=== PATIENT | male | born 1950 | race Caucasian/White ===

== ENCOUNTER → 2018-03-24 09:57 | Outpatient (CLI) | payer MEDICARE, OTHER, SELFPAY ==
[2018-03-24 10:38] LABS: Therapeutic Phleb Comment HCT AT TARGET
[2018-03-24 10:39] LABS: Add Manual Diff / Slide Review NO; Basophils Percent Auto 0.4 % (0-2); Eosinophils Percent Auto 3.1 % (2-4); Lymphocytes Percent Auto 25.3 % (25-40); Mean Corpuscular HGB Conc 32.1 % (30-36); Mean Corpuscular Hemoglobin 25.6 PG (26-34); Mean Corpuscular Volume 79.5 fL (80-100); Monocytes Percent Auto 12.4 % (3-14); Neutrophils Absolute Auto 3400 /uL (3000-5900); Neutrophils Percent Auto 58.8 % (50-75); Platelet Count 111 X10^3/uL (150-400); Red Blood Cell Count 5.65 X10^6/uL (4.5-5.9); Red Cell Distribution Width 16.4 % (11.6-14.8); White Blood Cell Count 5.7 X10^3/uL (4.5-11.0)
[2018-03-24 10:40] LABS: Hematocrit 45.1 % (41-53); Hemoglobin 14.6 g/dL (13.5-17.5)
[2018-03-24 11:20] LABS: HEMOLYSIS < 15 (0-50); Iron 60 ug/dL (49-181)
[2018-03-24 11:21] LABS: Alanine Aminotransferase 52 IU/L (21-72); Albumin 4.1 g/dL (3.5-5.0); Albumin Globulin Ratio 1.5 (1.0-2.8); Alkaline Phosphatase 65 U/L (38-126); Aspartate Aminotransferase 46 IU/L (17-59); BUN Creatinine Ratio 18.9 (6-22); Bilirubin Total 0.6 mg/dL (0.2-1.3); Blood Urea Nitrogen 17 mg/dL (9-20); Calcium 9.1 mg/dL (8.4-10.2); Carbon Dioxide 32 mmol/L (22-32); Chloride 99 mmol/L (98-107); Estimated Glomerular Filt Rate > 60.0 mL/min (>60); Globulin 2.7 g/dL (1.7-4.1); Glucose 94 mg/dL (80-110); HEMOLYSIS < 15 (0-50); Potassium 5.2 mmol/L (3.4-5.1); Sodium 141 mmol/L (137-145); Total Protein 6.8 g/dL (6.3-8.2)
[2018-03-24 11:31] LABS: Percent Iron Saturation 14 % (20-50); Total Iron Binding Capacity 440 ug/mL (261-462); Transferrin 350 mg/dL (206-381)
== END ==
PROVIDERS: PCP Family Medicine; Visit Provider Internal Medicine Hematology & Oncology
DX: D75.1 Secondary polycythemia (principal); R53.83 Other fatigue; R79.89 Other specified abnormal findings of blood chemistry
CPT/HCPCS: 36415; 80053; 82728; 83540; 83550; 85025; 99195

== ENCOUNTER → 2018-04-28 09:54 | Outpatient (CLI) | payer MEDICARE, OTHER, SELFPAY ==
[2018-04-28 10:21] LABS: Add Manual Diff / Slide Review NO; Basophils Percent Auto 0.6 % (0-2); Eosinophils Percent Auto 2.9 % (2-4); Hemoglobin 14.1 g/dL (13.5-17.5); Lymphocytes Percent Auto 25.1 % (25-40); Mean Corpuscular HGB Conc 32.1 % (30-36); Mean Corpuscular Hemoglobin 25.6 PG (26-34); Mean Corpuscular Volume 79.9 fL (80-100); Monocytes Percent Auto 12.2 % (3-14); Neutrophils Absolute Auto 3700 /uL (3000-5900); Neutrophils Percent Auto 59.2 % (50-75); Platelet Count 108 X10^3/uL (150-400); Red Blood Cell Count 5.51 X10^6/uL (4.5-5.9); Red Cell Distribution Width 17.7 % (11.6-14.8); White Blood Cell Count 6.2 X10^3/uL (4.5-11.0)
== END ==
PROVIDERS: PCP Family Medicine; Visit Provider Nurse Practitioner Gerontology
DX: D75.1 Secondary polycythemia (principal)
CPT/HCPCS: 36415; 85025

== ENCOUNTER → 2018-05-26 09:57 | Outpatient (CLI) | payer MEDICARE, OTHER, SELFPAY ==
[2018-05-26 10:16] LABS: Add Manual Diff / Slide Review NO; Basophils Percent Auto 1.1 % (0-2); Eosinophils Percent Auto 3.8 % (2-4); Hemoglobin 14.8 g/dL (13.5-17.5); Lymphocytes Percent Auto 22.8 % (25-40); Mean Corpuscular HGB Conc 32.3 % (30-36); Mean Corpuscular Hemoglobin 25.8 PG (26-34); Monocytes Percent Auto 13.1 % (3-14); Neutrophils Absolute Auto 3900 /uL (3000-5900); Neutrophils Percent Auto 59.2 % (50-75); Platelet Count 110 X10^3/uL (150-400); Red Blood Cell Count 5.75 X10^6/uL (4.5-5.9); Red Cell Distribution Width 17.8 % (11.6-14.8); White Blood Cell Count 6.6 X10^3/uL (4.5-11.0)
[2018-05-26 10:20] LABS: 585 Gram Check PASS; Zero Check Sebra Scale PASS
[2018-05-26 10:21] LABS: Amount Collected in g 585; Prediastolic 72; Presystolic 130; Pulse 52; Site of phlebotomy RIGHT AC
[2018-05-26 10:36] LABS: Dizziness no; Postdiastolic BP 66; Postsystolic BP 121; Swelling no
== END ==
PROVIDERS: PCP Family Medicine; Visit Provider Nurse Practitioner Gerontology
DX: D75.1 Secondary polycythemia (principal)
CPT/HCPCS: 36415; 85025; 99195

== ENCOUNTER → 2018-06-16 09:32 | Outpatient (CLI) | payer MEDICARE, OTHER, SELFPAY ==
[2018-06-16 10:05] LABS: Hematocrit 44.5 % (41-53); Hemoglobin 14.5 g/dL (13.5-17.5)
[2018-06-16 11:14] LABS: Alanine Aminotransferase 46 IU/L (21-72); Albumin 4.1 g/dL (3.5-5.0); Albumin Globulin Ratio 1.6 (1.0-2.8); Alkaline Phosphatase 75 U/L (38-126); Aspartate Aminotransferase 49 IU/L (17-59); Bilirubin Total 0.7 mg/dL (0.2-1.3); Bilirubin Unconjugated 0.4 mg/dL (0.0-1.1); Globulin 2.6 g/dL (1.7-4.1); HEMOLYSIS < 15 (0-50); Total Protein 6.7 g/dL (6.3-8.2)
[2018-06-16 11:45] LABS: Prostate Specific Antigen 0.471 ng/mL (0.10-4.00)
== END ==
PROVIDERS: PCP Family Medicine; Visit Provider Urology
DX: E29.1 Testicular hypofunction (principal); Z12.5 Encounter for screening for malignant neoplasm of prostate
CPT/HCPCS: 36415; 80076; 84153; 85014; 85018

== ENCOUNTER → 2018-06-30 09:59 | Outpatient (CLI) | payer MEDICARE, OTHER, SELFPAY ==
[2018-06-30 10:24] LABS: Add Manual Diff / Slide Review NO; Basophils Percent Auto 0.7 % (0-2); Eosinophils Percent Auto 3.2 % (2-4); Hematocrit 44.5 % (41-53); Hemoglobin 14.4 g/dL (13.5-17.5); Lymphocytes Percent Auto 23.2 % (25-40); Mean Corpuscular HGB Conc 32.4 % (30-36); Mean Corpuscular Hemoglobin 25.9 PG (26-34); Mean Corpuscular Volume 79.9 fL (80-100); Monocytes Percent Auto 13.1 % (3-14); Neutrophils Absolute Auto 3900 /uL (3000-5900); Neutrophils Percent Auto 59.8 % (50-75); Platelet Count 106 X10^3/uL (150-400); Red Blood Cell Count 5.57 X10^6/uL (4.5-5.9); Red Cell Distribution Width 16.9 % (11.6-14.8); White Blood Cell Count 6.5 X10^3/uL (4.5-11.0)
[2018-06-30 11:15] LABS: Alanine Aminotransferase 57 IU/L (21-72); Albumin 4.1 g/dL (3.5-5.0); Albumin Globulin Ratio 1.4 (1.0-2.8); Alkaline Phosphatase 65 U/L (38-126); Aspartate Aminotransferase 53 IU/L (17-59); Bilirubin Total 0.7 mg/dL (0.2-1.3); Blood Urea Nitrogen 19 mg/dL (9-20); Calcium 9.1 mg/dL (8.4-10.2); Carbon Dioxide 34 mmol/L (22-32); Chloride 102 mmol/L (98-107); Estimated Glomerular Filt Rate > 60.0 mL/min (>60); Globulin 2.9 g/dL (1.7-4.1); Glucose 89 mg/dL (80-110); HEMOLYSIS < 15 (0-50); Potassium 4.6 mmol/L (3.4-5.1); Sodium 141 mmol/L (137-145)
== END ==
PROVIDERS: PCP Family Medicine; Visit Provider Nurse Practitioner Gerontology
DX: D75.1 Secondary polycythemia (principal)
CPT/HCPCS: 36415; 80053; 85025

== ENCOUNTER 2018-07-05 14:30 | Oncology outpatient (ONC) | payer MEDICARE, OTHER, SELFPAY ==
[2018-04-08 15:08] VITALS: BP 129/72; PULSE 67; RESP 18; TEMP 36.5
--- NOTE | 2018-04-08 15:36 | P.PNONC_ITS ---
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 Patient currently receiving 0.75cc (unsure of dose) every 2 weeks. Patient is currently on nonstandard care with therapeutic phlebotomy for hematocrit of 45 or above initially started in 2005 which he continues on at this time. It has been recommended in the past by multiple providers that he decrease his testosterone dose. PSA was checked by Dr. Can in December of 2017. It was within normal limits at 2.7. Recommend that he and his primary care provider continue monitoring at least every 6 months or so while on testosterone replacement. Continue with every 2 month CBC. Discontinue every month iron profile as insurance has not been covering it. Counts have been fairly stable. We will check every 6 months or sooner if clinically indicated. Continue therapeutic phlebotomy as needed. Return to clinic in 3 months for provider visit CBC, CMP. Patient agrees with the above plan of care. - Time Spent with Patient 35 mins PN -Subjective Interval history: The patient is a 67 year old Male who is being seen in the clinic 04/08/2018 for secondary polycythemia related to a history of longstanding injectable testosterone replacement therapy. Initially he was requiring therapeutic phlebotomy almost every 2 weeks. This was strongly discouraged, additionally, he was encouraged to decrease his testosterone replacement dose. Currently he is receiving 0.75cc testosterone Q2 weeks. He has required only 2 therapeutic phlebotomies since September of 2017. On exam today he has no new complaints whatsoever. Overall is feeling well. No chest pain, shortness of breath. Activity tolerance is unchanged. Appetite is unchanged. Bladder and bowel habits unchanged. No new pain, no new lower extremity edema. INTERIM HISTORY the most recent testosterone level was over 1300 on Nov 12. He had done a dose reduction for 6 months; Dose: 0.75 mg every two weeks in muscle. Last phlebotomy was Oct 09. Next time will be Nov 02. He undergoes phlebotomyfor symptomatic relief. I have advised him that although phlebotomy is not dangerous, the correct solution to the problem is to reduce or eliminate testosterone injections. HISTORY He developed fatigue and thus began treatment with testosterone, currently on a dose of 1cc IM every 2 weeks, he noted improvement in both energy and libido. Apprxoimately 7 years ago it is noted he developed predictable polycythemia, was started on routine phlebotomies, initailly every [address] Brooks recommended 50% dose reduction in testosterone dose, with recheck and assessment as to whether phlebotomy is still needed. He saw me on March 02, 2017 ; I encouraged further reduction in testosterone dose, phelbotomy to get HCT under 50%, CBC, CMP, FE, TIBC, and Ferritin He reports that he is back on his full dose of testosterone because he waas feeling drug down with the reduced dose and it didn't seem to be making much difference in my blood so he returned to the full dose. He has been receiving phlebotomies as often as every 2 weeks, his most recent hct was at 50.4% on 04/03/17. Past Medical History Diagnosed with primary anal cancer 10-plus years ago. Treated with combination chemotherapy/radiation therapy. His last colonoscopy was 10-plus years ago. Hypertension, under treatment. secondary polycythemia. Venous insufficiency, primarily in the left lower extremity. Past Surgical History Per [facility] Last colonoscopy 10+ years ago Home Medications and Allergies Home Medications Medication Instructions Recorded Confirmed Type VITAMIN D (Vitamin D3) 1,000 iu PO QDAY #0 01/30/17 History [MILK THISTLE] 500 mg PO QDAY #0 01/30/17 History ascorbic acid (vitamin C) 500 mg PO QDAY #0 01/30/17 History cephalexin [Keflex] 250 mg BID #0 01/30/17 History glucosamine sulfate [Synovacin] 500 mg PO QDAY #0 01/30/17 History hydrochlorothiazide 25 mg PO QDAY #0 01/30/17 History loratadine [Claritin Liqui-Gel] 10 mg PO QDAYP PRN #0 01/30/17 History lovastatin 20 mg PO HS #0 01/30/17 History omega 0-ugr-hdv-fish oil [Fish Oil] 1,000 mg PO QDAY #0 01/30/17 History sulfamethoxazole-trimethoprim 1 tab PO BID #0 01/30/17 History trazodone 50 mg PO HS #0 01/30/17 History zinc gluconate 100 mg PO QDAY #0 01/30/17 History aspirin 81 mg PO BID #0 01/11/18 History ginkgo biloba leaf extract 60 mg PO Q DAY #0 01/11/18 History metoprolol tartrate 50 mg PO BID 04/08/18 04/08/18 History Allergies Allergy/AdvReac Type Severity Reaction Status Date / Time morphine [MORPHINE] AdvReac Severe ITCH Unverified 01/27/18 12:01 INGREDIENT: NKDA - NO KNOWN Allergy Unknown Uncoded 01/27/18 12:01 DRUG ALLERGIES Exam Vital signs: Last Vital Signs Temp 97.7 F 04/08/18 15:08 Pulse 67 04/08/18 15:08 Resp 18 04/08/18 15:08 BP 129/72 H 04/08/18 15:08 Narrative: non toxic appearing - Constitutional positive no acute distress, positive obese - Routine HEENT Exam Eye: Present: conjunctivae pink. Absent: conjunctival icterus, scleral injection ENT: Present: mucous membranes moist - Routine Neck Exam Present: supple. Absent: JVD, lymphadenopathy - Routine Respiratory Exam Present: Clear to auscultation bilaterally - Routine Cardiovascular Exam Present: RRR, S1, S2. Absent: murmur, gallop, rubs - Routine Abdominal Exam Present: soft, normoactive bowel sounds. Absent: tenderness, distended, organomegaly - Routine Extremities Exam Absent: edema, calf tenderness - Routine Skin Exam Present: intact, normal turgor. Absent: petechiae, rash - Routine Neurological Exam Present: alert, oriented X3, vision grossly intact, hearing grossly intact - Routine Psychiatric Exam Present: normal affect, normal thought process, good insight, good judgment
--- NOTE | 2018-07-05 14:05 | P.PNONC_ITS ---
PN -Subjective Interval history: CHIEF COMPLAINTS Secondary polycythemia here for scheduled follow-up visit HISTORY OF PRESENT ILLNESS The patient was previously followed by Dr. Bob. And this is my first encounter with him. I took time and reviewed all the medical records in the computer and also took a detailed medical history from the patient. Per patient' s recall, he was diagnosed with anal squamous cell carcinoma back in 2005. Patient underwent curative concurrent chemoradiotherapy. Thereafter as far as squamous cell carcinoma is concerned, there has been no evidence of disease recurrence or metastasis. However due to the concurrent radiation treatment, patient developed abnormal bowel movement issues. Patient now is having multiple frequent bowel movement, about 5-6 times per day. He said that it is rough towards the end of the day after frequent stools, and sometimes he saw blood on the surface of the stool. Patient said that he is aware that he is due for colonoscopy and he himself will try to touch base with his primary care provider and proceed. In addition, due to the radiation treatment, patient developed primary testicular failure. After chemoradiotherapy, patient was started on testosterone replacement therapy with Depo testosterone cypionate. About 6 months into the use of testosterone, he was found to have an elevated hemoglobin and hematocrit level. Patient at that time was followed by Dr. Camacho and patient was initiated on the treatment with phlebotomies. Per patient's own word, when the hematocrit level is above 45%, patient feels discomfort; and feels better after the phlebotomy. Patient currently is being followed by Dr. Carlton for testosterone replacement therapy. At one time, patient stopped phlebotomy after seeing Dr. Dugan, a medical oncologist. However patient noticed that without phlebotomy, patient developed symptoms of fatigue and flush. Therefore phlebotomy was resumed after patient was evaluated evaluated by Dr. Bob. The goal of the phlebotomy is set to keep the hematocrit level around 45%. Today, he presents for scheduled follow up visit. Clinically patient reported good energy after the injection of the testosterone. But at the end of the 2 weeks interval, his energy level usually declines to some extent. Patient reports good appetite and his weight has been stable. He denies any headache, double vision or blurred vision. He denies chest pain or shortness of breath. He denies any abdominal pain. He denies constipation. Patient recently developed right neck pain. It has been present for about a couple of months. Patient has been evaluated by a chiropractor and was recommended for physical therapy which he is yet to see his primary care doctor to get the referral. - Additional ROS All systems PM: reviewed and no additional remarkable complaints except as stated Home Medications and Allergies Home Medications Medication Instructions Recorded Confirmed Type VITAMIN D (Vitamin D3) 1,000 iu PO QDAY #0 01/30/17 07/05/18 History [MILK THISTLE] 500 mg PO QDAY #0 01/30/17 07/05/18 History ascorbic acid (vitamin C) 500 mg PO QDAY #0 01/30/17 07/05/18 History cephalexin [Keflex] 250 mg BID #0 01/30/17 History glucosamine sulfate [Synovacin] 500 mg PO QDAY #0 01/30/17 07/05/18 History hydrochlorothiazide 25 mg PO QDAY #0 01/30/17 07/05/18 History loratadine [Claritin Liqui-Gel] 10 mg PO QDAYP PRN #0 01/30/17 07/05/18 History lovastatin 20 mg PO HS #0 01/30/17 07/05/18 History omega 2-igo-rmx-fish oil [Fish Oil] 1,000 mg PO QDAY #0 01/30/17 07/05/18 History trazodone 50 mg PO HS #0 01/30/17 07/05/18 History zinc gluconate 100 mg PO QDAY #0 01/30/17 07/05/18 History aspirin 81 mg PO BID #0 01/11/18 07/05/18 History ginkgo biloba leaf extract 60 mg PO Q DAY #0 01/11/18 07/05/18 History metoprolol tartrate 50 mg PO BID 04/08/18 07/05/18 History Allergies Allergy/AdvReac Type Severity Reaction Status Date / Time morphine [MORPHINE] AdvReac Severe ITCH Verified 07/05/18 14:58 Exam Vital signs: Temperature 98.5, heart rate 76, respiratory rate 17, pulse ox 96% on room air, weight 98.5 kilos, blood pressure 134/59, ECOG 1 Narrative: General: well developed, well nourished, not in any acute respiratory distress , came in by himself. Patient does have a rubra facial complexion. HEENT: Normocephalic, atraumatic, extraocular muscle movement intact, pupils are round equal and reactive to light and accommodations, anicteric sclera, no conjunctiva injection, oral mucosa membranes moist, no oral mucosal ulcers. Neck: Supple, no palpable thyromegaly, no palpable enlarged lymph nodes, no JVD. Respiratory: Clear to auscultation, no wheezes, no use of accessory respiratory muscles. Cardiovascular: Regular rate and rhythm, S1 and S2 normal, no murmurs gallops or rubs. Abdomen: Soft, nontender, nondistended, no palpable hepatomegaly, no palpable splenomegaly. Lower extremities: No pitting edema noted on my physical examination Neurological: Patient is awake and alert and oriented x3, nonfocal on my examination. Psychiatric: Patient has normal mood, normal affect, cooperative, normal thought process and good judgment. Lymphatic: No palpable lymph nodes in the neck or the axilla. Results - Labs The lab result from June the 2017 was reviewed by me today. Patient's white blood cell count was 6.5, hemoglobin level 14.4, hematocrit 44.5%, and platelets 106, sodium 141, potassium 4.6, chloride 102, carbon dioxide 34, BUN 19, creatinine 1.0, glucose level 89, calcium 9.1, total bilirubin 0.7, AST 53, ALT 57, alk phos 65, total protein 7.0, albumin 4.1, globulin 2.9, Assessment and Plan (1) Secondary polycythemia Current visit: Yes Status: Chronic Patient's polycythemia is most likely due to the prolonged use of testosterone. I discussed in detail with the patient about the goal of the phlebotomies. Clinically patient clearly benefits from phlebotomy as far as symptoms are concerned. Patient said that after the phlebotomy, he feels a lot better. If HCT level rises above 45%, patient actually can feel the difference. From symptom management point of view, I will continue current active monitoring with phlebotomy on an as-needed basis. I told the patient that my goal is to keep the hematocrit level around 45%. I will see him in 2 months and I will repeat the CBC and CMP, and possibly phlebotomy. 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 Patient has been on replacement testosterone with good therapeutic effect as far as overall sense of health and energy level is concerned. I believe that pharmacological replacement with testosterone can never mimick what nature can do. That is why we see some untoward side-effects including the above-mentioned polycythemia. Patient currently is being followed by Dr. Carlton for the primary testicular failure. I encouraged him continue follow-up with her. Patient voiced understanding. (3) Neck pain on right side Current visit: Yes Status: Chronic Patient reported new onset right-sided neck pain for the last couple of months. He is now being evaluated by chiropractor and is about to see physical therapy. I talked with the patient that needs attention. If it does not improve , I would recommend further imaging studies. (4) History of anal cancer Current visit: Yes Status: Chronic He has a remote history of anal squamous cell carcinoma status post concurrent chemo-radiotherapy. Clinically no evidence of disease recurrence or metastasis. Patient is due for colonoscopy. I encouraged patient to follow up with his primary care provider and schedule the colonoscopy. Patient voiced understanding.
[2018-07-05 14:53] VITALS: BP 134/59; PULSE 76; RESP 17; TEMP 36.9; O2SAT 96
== END 2018-07-15 13:43 ==
PROVIDERS: PCP Family Medicine; Visit Provider Nurse Practitioner Gerontology
DX: D75.1 Secondary polycythemia (principal)
CPT/HCPCS: 99214; 99215

== ENCOUNTER → 2018-07-29 09:57 | Outpatient (CLI) | payer MEDICARE, OTHER, SELFPAY ==
[2018-07-29 10:15] LABS: Add Manual Diff / Slide Review NO; Basophils Percent Auto 0.6 % (0-2); Eosinophils Percent Auto 3.7 % (2-4); Hematocrit 46.3 % (41-53); Hemoglobin 14.7 g/dL (13.5-17.5); Lymphocytes Percent Auto 23.8 % (25-40); Mean Corpuscular HGB Conc 31.7 % (30-36); Mean Corpuscular Hemoglobin 25.5 PG (26-34); Mean Corpuscular Volume 80.3 fL (80-100); Neutrophils Absolute Auto 4300 /uL (3000-5900); Neutrophils Percent Auto 59.9 % (50-75); Platelet Count 126 X10^3/uL (150-400); Red Blood Cell Count 5.77 X10^6/uL (4.5-5.9); White Blood Cell Count 7.3 X10^3/uL (4.5-11.0)
[2018-07-29 11:07] LABS: 585 Gram Check PASS; Amount Collected in g 585 GRAM; Prediastolic 73; Presystolic 132; Pulse 53; Site of phlebotomy RIGHT AC; Zero Check Sebra Scale PASS
[2018-07-29 11:09] LABS: Dizziness NO; Postdiastolic BP 63; Postsystolic BP 128; Swelling NO; Therapeutic Phleb Comment NO COMMENT
== END ==
PROVIDERS: Internal Medicine Hematology & Oncology; PCP Family Medicine; Visit Provider Internal Medicine
DX: D75.1 Secondary polycythemia (principal)
CPT/HCPCS: 36415; 85025; 99195

== ENCOUNTER → 2018-09-23 09:59 | Outpatient (CLI) | payer MEDICARE, OTHER, SELFPAY ==
[2018-09-23 10:17] LABS: Add Manual Diff / Slide Review NO; Basophils Percent Auto 0.7 % (0-2); Eosinophils Percent Auto 5.5 % (2-4); Hematocrit 44.7 % (41-53); Mean Corpuscular HGB Conc 31.3 % (30-36); Mean Corpuscular Hemoglobin 24.2 PG (26-34); Mean Corpuscular Volume 77.5 fL (80-100); Monocytes Percent Auto 12.5 % (3-14); Neutrophils Absolute Auto 4600 /uL (3000-5900); Neutrophils Percent Auto 59.3 % (50-75); Platelet Count 135 X10^3/uL (150-400); Red Blood Cell Count 5.77 X10^6/uL (4.5-5.9); Red Cell Distribution Width 16.3 % (11.6-14.8); White Blood Cell Count 7.7 X10^3/uL (4.5-11.0)
== END ==
PROVIDERS: PCP Family Medicine; Visit Provider Internal Medicine Hematology & Oncology
DX: D75.1 Secondary polycythemia (principal); Z85.048 Personal history of other malignant neoplasm of rectum, rectosigmoid junction, and anus
CPT/HCPCS: 85025

== ENCOUNTER → 2018-10-20 09:56 | Outpatient (CLI) | payer MEDICARE, OTHER, SELFPAY ==
[2018-10-20 10:11] LABS: Add Manual Diff / Slide Review NO; Basophils Percent Auto 0.7 % (0-2); Eosinophils Percent Auto 4.3 % (2-4); Hematocrit 44.3 % (41-53); Hemoglobin 13.8 g/dL (13.5-17.5); Lymphocytes Percent Auto 24.8 % (25-40); Mean Corpuscular Hemoglobin 23.9 PG (26-34); Mean Corpuscular Volume 76.9 fL (80-100); Monocytes Percent Auto 13.8 % (3-14); Neutrophils Absolute Auto 3900 /uL (1500-7000); Neutrophils Percent Auto 56.4 % (50-75); Platelet Count 137 X10^3/uL (150-400); Red Blood Cell Count 5.77 X10^6/uL (4.5-5.9); Red Cell Distribution Width 17.6 % (11.6-14.8); White Blood Cell Count 6.9 X10^3/uL (4.5-11.0)
== END ==
PROVIDERS: Family Provider Family Medicine; PCP Family Medicine; Visit Provider Internal Medicine Hematology & Oncology
DX: D75.1 Secondary polycythemia (principal); Z85.048 Personal history of other malignant neoplasm of rectum, rectosigmoid junction, and anus
CPT/HCPCS: 36415; 85025

== ENCOUNTER → 2018-11-17 09:57 | Outpatient (CLI) | payer MEDICARE, OTHER, SELFPAY ==
[2018-11-17 10:11] LABS: Add Manual Diff / Slide Review NO; Basophils Absolute Auto 100 /uL (0-100); Basophils Percent Auto 0.8 % (0-2); Eosinophils Absolute Auto 200 /uL (0-450); Eosinophils Percent Auto 3.9 % (2-4); Hematocrit 45.5 % (41-53); Hemoglobin 14.4 g/dL (13.5-17.5); Lymphocytes Absolute Auto 1700 /uL (1100-4500); Lymphocytes Percent Auto 27.6 % (25-40); Mean Corpuscular HGB Conc 31.6 % (30-36); Mean Corpuscular Hemoglobin 24.2 PG (26-34); Mean Corpuscular Volume 76.6 fL (80-100); Monocytes Absolute Auto 600 /uL (0-900); Monocytes Percent Auto 10.4 % (3-14); Neutrophils Absolute Auto 3500 /uL (1500-7000); Neutrophils Percent Auto 57.3 % (50-75); Platelet Count 133 X10^3/uL (150-400); Red Blood Cell Count 5.94 X10^6/uL (4.5-5.9); Red Cell Distribution Width 17.9 % (11.6-14.8); White Blood Cell Count 6.1 X10^3/uL (4.5-11.0)
[2018-11-17 10:42] LABS: 585 Gram Check PASS; Amount Collected in g 585 GRAM; Dizziness NO; Postdiastolic BP 70; Postsystolic BP 126; Prediastolic 73; Presystolic 140; Pulse 53; Site of phlebotomy RIGHT AC; Swelling NO; Therapeutic Phleb Comment NO COMMENT; Zero Check Sebra Scale PASS
== END ==
PROVIDERS: Family Provider Family Medicine; PCP Family Medicine; Visit Provider Internal Medicine Hematology & Oncology
DX: D75.1 Secondary polycythemia (principal); Z85.048 Personal history of other malignant neoplasm of rectum, rectosigmoid junction, and anus
CPT/HCPCS: 36415; 85025; 99195

== ENCOUNTER → 2018-12-15 10:01 | Outpatient (CLI) | payer MEDICARE, OTHER, SELFPAY ==
[2018-12-15 10:15] LABS: Add Manual Diff / Slide Review NO; Basophils Absolute Auto 0 /uL (0-100); Basophils Percent Auto 0.6 % (0-2); Eosinophils Absolute Auto 300 /uL (0-450); Hematocrit 42.2 % (41-53); Lymphocytes Absolute Auto 1400 /uL (1100-4500); Lymphocytes Percent Auto 21.6 % (25-40); Mean Corpuscular HGB Conc 30.9 % (30-36); Mean Corpuscular Hemoglobin 23.9 PG (26-34); Mean Corpuscular Volume 77.5 fL (80-100); Monocytes Absolute Auto 900 /uL (0-900); Monocytes Percent Auto 13.5 % (3-14); Neutrophils Absolute Auto 4000 /uL (1500-7000); Neutrophils Percent Auto 60.3 % (50-75); Platelet Count 116 X10^3/uL (150-400); Red Blood Cell Count 5.44 X10^6/uL (4.5-5.9); Red Cell Distribution Width 17.9 % (11.6-14.8); White Blood Cell Count 6.7 X10^3/uL (4.5-11.0)
== END ==
PROVIDERS: Family Provider Family Medicine; PCP Family Medicine; Visit Provider Internal Medicine Hematology & Oncology
DX: D75.1 Secondary polycythemia (principal); Z85.048 Personal history of other malignant neoplasm of rectum, rectosigmoid junction, and anus
CPT/HCPCS: 36415; 85025

== ENCOUNTER → 2019-01-06 13:45 | Outpatient (CLI) | payer MEDICARE, OTHER, SELFPAY ==
--- NOTE | 2019-01-06 14:56 | PM.TREADMILL ---
Cardiac Stress Test Report Referral & Results Date Patient Seen: 01/06/19 Requesting provider: Noel Reyes Indication: Chest discomfort Rest ECG: Unremarkable Procedure Note: Today following both written and verbal informed consent the patient was exercised according to a standard Power protocol patient went for a total of for minutes 3 seconds achieving a maximum heart rate of 140 maximum systolic blood pressure of 228. This is approximately 7.0 METS. Exercise was terminated at this point because of fatigue in the part of the patient. Patient was also given Cardiolite through a previously started Hep-Lock IV by the nuclear medicine technologist approximately 1 minute prior to the cessation of exercise. There are no ST-T segment changes identified Normal heart rate response to exercise, patient is slightly hypertensive overall in blood pressure response Functional aerobic impairment rated 35% of the sedentary scale Impression: No evidence of ischemia Please see perfusion imaging report as well Please note: Actual ECG tracings can be found in the PACS system.
--- NOTE | 2019-01-08 06:34 | DI.NM.S_ITS ---
DATE OF SERVICE: 01/06/2019 PROCEDURE: Exercise perfusion study. INDICATION: Chest pain with underlying hypertension, hyperlipidemia. RADIOPHARMACEUTICAL: 26.5 mCi technetium-99m Myoview IV was injected at stress and 24.8 mCi technetium-99m Myoview IV was injected at rest. CARDIAC STRESS: The patient underwent an exercise perfusion study under the supervision of an attending staff. The patient walked on Power protocol for 4 minutes 03 seconds and achieved 92% of target heart rate and hypertensive blood pressure response. Baseline blood pressure was 150/84. Peak blood pressure 228/88. Achieved 7 minutes of workload. FUNCTIONAL AEROBIC IMPAIRMENT: +45%. No active chest pain. RAW DATA: There was increased subdiaphragmatic activity. The patient's weight is 247 pounds. GATED STUDY: Stress LV ejection fraction 77%. I do not see any obvious wall motion abnormalities. No transient ischemic dilation. TID ratio 0.75, which is within normal limits. Lung/heart ratio is 0.37, which is within normal limits. MYOCARDIAL PERFUSION: Stress supine, resting supine images revealed a small sized, mildly decreased perfusion of the inferior wall and inferior apex which got resolved during prone images, suggestive of diaphragmatic tissue attenuation artifact. CONCLUSION: I will call this study a normal myocardial perfusion study with evidence of diaphragmatic tissue attenuation artifact which got resolved during prone images. Poor exercise tolerance. Hypertensive blood pressure response. Preserved LV function. Overall, this is a low-risk myocardial perfusion scan. Alex Gavin - ANG/mickey/ts doc#: [id number]/job#: [id number] dd: 01/07/2019 16:49:00 dt: 01/08/2019 06:20:00 DICTATING /COPIES TO: Rosalva Benitez MD COPIES MNE: JAQUELIN
== END ==
PROVIDERS: Family Provider Family Medicine; PCP Family Medicine; Visit Provider Family Medicine
DX: R07.9 Chest pain, unspecified (principal); I10 Essential (primary) hypertension; E78.5 Hyperlipidemia, unspecified
CPT/HCPCS: 78452; 93016; 93017; 93018; A9502

== ENCOUNTER → 2019-01-12 09:59 | Outpatient (CLI) | payer MEDICARE, OTHER, SELFPAY ==
[2019-01-12 10:31] LABS: Add Manual Diff / Slide Review NO; Basophils Absolute Auto 0 /uL (0-100); Basophils Percent Auto 0.7 % (0-2); Eosinophils Absolute Auto 300 /uL (0-450); Eosinophils Percent Auto 4.3 % (2-4); Hematocrit 42.5 % (41-53); Hemoglobin 13.4 g/dL (13.5-17.5); Lymphocytes Absolute Auto 1500 /uL (1100-4500); Lymphocytes Percent Auto 23.4 % (25-40); Mean Corpuscular HGB Conc 31.6 % (30-36); Mean Corpuscular Hemoglobin 23.7 PG (26-34); Mean Corpuscular Volume 74.9 fL (80-100); Monocytes Absolute Auto 700 /uL (0-900); Monocytes Percent Auto 11.6 % (3-14); Neutrophils Absolute Auto 3800 /uL (1500-7000); Platelet Count 139 X10^3/uL (150-400); Red Blood Cell Count 5.67 X10^6/uL (4.5-5.9); Red Cell Distribution Width 17.6 % (11.6-14.8); White Blood Cell Count 6.4 X10^3/uL (4.5-11.0)
== END ==
PROVIDERS: Family Provider Family Medicine; PCP Family Medicine; Visit Provider Internal Medicine Hematology & Oncology
DX: D75.1 Secondary polycythemia (principal); Z85.048 Personal history of other malignant neoplasm of rectum, rectosigmoid junction, and anus
CPT/HCPCS: 36415; 85025

== ENCOUNTER → 2019-02-09 10:01 | Outpatient (CLI) | payer MEDICARE, OTHER, SELFPAY ==
[2019-02-09 10:22] LABS: Add Manual Diff / Slide Review NO; Basophils Absolute Auto 0 /uL (0-100); Basophils Percent Auto 0.6 % (0-2); Eosinophils Absolute Auto 200 /uL (0-450); Hematocrit 43.6 % (41-53); Hemoglobin 13.6 g/dL (13.5-17.5); Lymphocytes Absolute Auto 1200 /uL (1100-4500); Lymphocytes Percent Auto 17.1 % (25-40); Mean Corpuscular HGB Conc 31.3 % (30-36); Mean Corpuscular Hemoglobin 23.7 PG (26-34); Mean Corpuscular Volume 75.8 fL (80-100); Monocytes Absolute Auto 700 /uL (0-900); Monocytes Percent Auto 9.9 % (3-14); Neutrophils Absolute Auto 5000 /uL (1500-7000); Neutrophils Percent Auto 69.4 % (50-75); Platelet Count 130 X10^3/uL (150-400); Red Blood Cell Count 5.75 X10^6/uL (4.5-5.9); Red Cell Distribution Width 17.5 % (11.6-14.8); White Blood Cell Count 7.2 X10^3/uL (4.5-11.0)
== END ==
PROVIDERS: Family Provider Family Medicine; PCP Family Medicine; Visit Provider Internal Medicine Hematology & Oncology
DX: D75.1 Secondary polycythemia (principal); Z85.048 Personal history of other malignant neoplasm of rectum, rectosigmoid junction, and anus
CPT/HCPCS: 36415; 85025

== ENCOUNTER → 2019-02-25 09:48 | Outpatient (CLI) | payer MEDICARE, OTHER, SELFPAY ==
[2019-02-25 10:49] LABS: Alanine Aminotransferase 63 IU/L (21-72); Albumin 4.4 g/dL (3.5-5.0); Albumin Globulin Ratio 1.8 (1.0-2.8); Alkaline Phosphatase 80 U/L (38-126); Aspartate Aminotransferase 47 IU/L (17-59); Bilirubin Total 0.6 mg/dL (0.2-1.3); Bilirubin Unconjugated 0.6 mg/dL (0.0-1.1); Globulin 2.5 g/dL (1.7-4.1); HEMOLYSIS < 15 (0-50); Total Protein 6.9 g/dL (6.3-8.2)
[2019-03-01 19:56] LABS: Testosterone Free 47.6 pg/mL (35.0-155.0); Testosterone Total 442 ng/dL (250-1100)
== END ==
PROVIDERS: Family Provider Family Medicine; PCP Family Medicine; Visit Provider Urology
DX: E29.1 Testicular hypofunction (principal); E66.9 Obesity, unspecified; Z68.37 Body mass index [BMI] 37.0-37.9, adult
CPT/HCPCS: 36415; 80076; 84402; 84403

== ENCOUNTER → 2019-03-09 10:00 | Outpatient (CLI) | payer MEDICARE, OTHER, SELFPAY ==
[2019-03-09 10:38] LABS: Add Manual Diff / Slide Review NO; Basophils Absolute Auto 0 /uL (0-100); Basophils Percent Auto 0.6 % (0-2); Eosinophils Absolute Auto 300 /uL (0-450); Eosinophils Percent Auto 4.6 % (2-4); Hematocrit 45.3 % (41-53); Hemoglobin 13.9 g/dL (13.5-17.5); Lymphocytes Absolute Auto 1400 /uL (1100-4500); Lymphocytes Percent Auto 24.1 % (25-40); Mean Corpuscular HGB Conc 30.8 % (30-36); Mean Corpuscular Hemoglobin 23.6 PG (26-34); Mean Corpuscular Volume 76.8 fL (80-100); Monocytes Absolute Auto 600 /uL (0-900); Neutrophils Absolute Auto 3400 /uL (1500-7000); Neutrophils Percent Auto 59.7 % (50-75); Platelet Count 118 X10^3/uL (150-400); White Blood Cell Count 5.7 X10^3/uL (4.5-11.0)
[2019-03-09 11:12] LABS: 585 Gram Check PASS; Amount Collected in g 585 GRAM; Dizziness NO; Postdiastolic BP 62; Postsystolic BP 113; Prediastolic 72; Presystolic 129; Pulse 54; Site of phlebotomy RIGHT AC; Swelling NO; Therapeutic Phleb Comment NO COMMENT; Zero Check Sebra Scale PASS
== END ==
PROVIDERS: Family Provider Family Medicine; PCP Family Medicine; Visit Provider Internal Medicine Hematology & Oncology
DX: D75.1 Secondary polycythemia (principal); Z85.048 Personal history of other malignant neoplasm of rectum, rectosigmoid junction, and anus
CPT/HCPCS: 36415; 85025; 99195

== ENCOUNTER → 2019-04-13 09:56 | Outpatient (CLI) | payer MEDICARE, OTHER, SELFPAY ==
[2019-04-13 10:14] LABS: Add Manual Diff / Slide Review NO; Basophils Absolute Auto 0 /uL (0-100); Basophils Percent Auto 0.6 % (0-2); Eosinophils Absolute Auto 200 /uL (0-450); Eosinophils Percent Auto 3.5 % (2-4); Hematocrit 41.9 % (41-53); Hemoglobin 13.2 g/dL (13.5-17.5); Lymphocytes Absolute Auto 1300 /uL (1100-4500); Lymphocytes Percent Auto 21.3 % (25-40); Mean Corpuscular HGB Conc 31.5 % (30-36); Mean Corpuscular Hemoglobin 23.8 PG (26-34); Mean Corpuscular Volume 75.8 fL (80-100); Monocytes Absolute Auto 700 /uL (0-900); Monocytes Percent Auto 11.6 % (3-14); Neutrophils Absolute Auto 3900 /uL (1500-7000); Platelet Count 140 X10^3/uL (150-400); Red Blood Cell Count 5.53 X10^6/uL (4.5-5.9); Red Cell Distribution Width 18.7 % (11.6-14.8); White Blood Cell Count 6.1 X10^3/uL (4.5-11.0)
== END ==
PROVIDERS: Family Provider Family Medicine; PCP Family Medicine; Visit Provider Internal Medicine Hematology & Oncology
DX: D75.1 Secondary polycythemia (principal); Z85.048 Personal history of other malignant neoplasm of rectum, rectosigmoid junction, and anus
CPT/HCPCS: 36415; 85025

== ENCOUNTER → 2019-05-18 10:00 | Outpatient (CLI) | payer MEDICARE, OTHER, SELFPAY ==
[2019-05-18 10:12] LABS: Add Manual Diff / Slide Review NO; Basophils Absolute Auto 0 /uL (0-100); Basophils Percent Auto 0.4 % (0-2); Eosinophils Absolute Auto 300 /uL (0-450); Eosinophils Percent Auto 4.7 % (2-4); Hemoglobin 14.1 g/dL (13.5-17.5); Lymphocytes Absolute Auto 1400 /uL (1100-4500); Lymphocytes Percent Auto 23.1 % (25-40); Mean Corpuscular HGB Conc 31.3 % (30-36); Mean Corpuscular Hemoglobin 24.3 PG (26-34); Mean Corpuscular Volume 77.7 fL (80-100); Monocytes Absolute Auto 800 /uL (0-900); Monocytes Percent Auto 13.1 % (3-14); Neutrophils Absolute Auto 3500 /uL (1500-7000); Neutrophils Percent Auto 58.7 % (50-75); Platelet Count 139 X10^3/uL (150-400); Red Cell Distribution Width 18.6 % (11.6-14.8); White Blood Cell Count 5.9 X10^3/uL (4.5-11.0)
== END ==
PROVIDERS: PCP Family Medicine; Visit Provider Internal Medicine Hematology & Oncology
DX: D75.1 Secondary polycythemia (principal); Z85.048 Personal history of other malignant neoplasm of rectum, rectosigmoid junction, and anus
CPT/HCPCS: 36415; 85025

== ENCOUNTER → 2019-10-26 10:00 | Outpatient (CLI) | payer MEDICARE, OTHER, SELFPAY ==
[2019-10-26 10:12] LABS: Add Manual Diff / Slide Review NO; Basophils Absolute Auto 100 /uL (0-100); Basophils Percent Auto 0.7 % (0-2); Eosinophils Absolute Auto 300 /uL (0-450); Eosinophils Percent Auto 3.3 % (2-4); Hematocrit 46.7 % (41-53); Hemoglobin 15.6 g/dL (13.5-17.5); Lymphocytes Absolute Auto 2200 /uL (1100-4500); Lymphocytes Percent Auto 27.1 % (25-40); Mean Corpuscular HGB Conc 33.3 % (30-36); Mean Corpuscular Hemoglobin 26.7 PG (26-34); Mean Corpuscular Volume 80.3 fL (80-100); Monocytes Absolute Auto 1000 /uL (0-900); Monocytes Percent Auto 12.3 % (3-14); Neutrophils Absolute Auto 4500 /uL (1500-7000); Neutrophils Percent Auto 56.6 % (50-75); Platelet Count 148 X10^3/uL (150-400); Red Blood Cell Count 5.82 X10^6/uL (4.5-5.9); Red Cell Distribution Width 18.3 % (11.6-14.8)
[2019-10-26 10:49] LABS: 585 Gram Check PASS; Dizziness NO; Postdiastolic BP 70; Postsystolic BP 128; Prediastolic 74; Presystolic 138; Pulse 55; Site of phlebotomy RAC; Swelling NO; Therapeutic Phleb Comment NO COMMENT; Zero Check Sebra Scale PASS
== END ==
PROVIDERS: PCP Family Medicine; Visit Provider Internal Medicine Hematology & Oncology
DX: D75.1 Secondary polycythemia (principal)
CPT/HCPCS: 36415; 85025; 99195

== ENCOUNTER → 2020-03-27 09:48 | Outpatient (CLI) | payer MEDICARE, OTHER, SELFPAY ==
[2020-03-27 10:06] LABS: Add Manual Diff / Slide Review NO; Basophils Absolute Auto 0 /uL (0-100); Basophils Percent Auto 0.6 % (0-2); Eosinophils Absolute Auto 200 /uL (0-450); Eosinophils Percent Auto 3.8 % (2-4); Hematocrit 43.4 % (41-53); Lymphocytes Absolute Auto 1300 /uL (1100-4500); Lymphocytes Percent Auto 19.4 % (25-40); Mean Corpuscular HGB Conc 32.3 % (30-36); Mean Corpuscular Hemoglobin 25.8 PG (26-34); Mean Corpuscular Volume 80.1 fL (80-100); Monocytes Absolute Auto 800 /uL (0-900); Monocytes Percent Auto 11.8 % (3-14); Neutrophils Absolute Auto 4200 /uL (1500-7000); Neutrophils Percent Auto 64.4 % (50-75); Platelet Count 124 X10^3/uL (150-400); Red Blood Cell Count 5.42 X10^6/uL (4.5-5.9); Red Cell Distribution Width 18.1 % (11.6-14.8); White Blood Cell Count 6.5 X10^3/uL (4.5-11.0)
== END ==
PROVIDERS: PCP Family Medicine; Referring Provider Internal Medicine Hematology & Oncology; Visit Provider Internal Medicine Hematology & Oncology
DX: D75.1 Secondary polycythemia (principal)
CPT/HCPCS: 36415; 85025

== ENCOUNTER → 2020-10-04 10:14 | Outpatient (CLI) | payer MEDICARE, OTHER, SELFPAY ==
[2020-10-04 10:32] LABS: Add Manual Diff / Slide Review NO; Basophils Absolute Auto 100 /uL (0-100); Basophils Percent Auto 0.8 % (0-2); Eosinophils Absolute Auto 300 /uL (0-450); Hemoglobin 14.4 g/dL (13.5-17.5); Lymphocytes Absolute Auto 1700 /uL (1100-4500); Lymphocytes Percent Auto 25.1 % (25-40); Mean Corpuscular HGB Conc 31.4 % (30-36); Mean Corpuscular Hemoglobin 25.2 PG (26-34); Mean Corpuscular Volume 80.2 fL (80-100); Monocytes Absolute Auto 1000 /uL (0-900); Monocytes Percent Auto 14.8 % (3-14); Neutrophils Absolute Auto 3800 /uL (1500-7000); Neutrophils Percent Auto 55.3 % (50-75); Platelet Count 138 X10^3/uL (150-400); Red Blood Cell Count 5.74 X10^6/uL (4.5-5.9); Red Cell Distribution Width 18.1 % (11.6-14.8); White Blood Cell Count 6.8 X10^3/uL (4.5-11.0)
[2020-10-04 11:43] LABS: 585 Gram Check PASS; Dizziness NO; Postdiastolic BP 70; Postsystolic BP 126; Prediastolic 71; Presystolic 134; Pulse 53; Site of phlebotomy RAC; Swelling NO; Therapeutic Phleb Comment NO COMMENT; Zero Check Sebra Scale PASS
== END ==
PROVIDERS: PCP Family Medicine; Referring Provider Internal Medicine Hematology & Oncology; Visit Provider Internal Medicine Hematology & Oncology
DX: D75.1 Secondary polycythemia (principal)
CPT/HCPCS: 36415; 85025; 99195

== ENCOUNTER → 2020-12-25 12:30 | Outpatient (CLI) | payer MEDICARE, OTHER, SELFPAY ==
--- NOTE | 2020-12-25 12:32 | DI.US.S_ITS ---
PROCEDURE: US ABD AORTA ANEURYSM SCREEN INDICATIONS: ABDOMINAL AORTIC SCREENING TECHNIQUE: Real time scanning was performed of the aorta and iliac arteries, with image documentation. COMPARISON: [facility], CT, ABDOMEN/PELVIS WITH CONTRAST, 04/10/2009, 23:09. FINDINGS: Aorta: Proximal aortic not well visualized. Mid-aorta measures 2.2 cm. Distal aortic diameter is 2.2 cm. Iliac arteries: Right common iliac artery measures 1.0 cm. Left common iliac artery measures 1.3 cm. IMPRESSION: Proximal aorta not well visualized; otherwise no abdominal aortic aneurysm. Dictated by: Nishant Bahena [facility] Interpreted: Tom Padilla MD on 12/26/2020 at 16:19 Approved by: Tom Padilla M.D. on 12/26/2020 at 17:06
== END ==
PROVIDERS: PCP Family Medicine; Referring Provider Family Medicine; Visit Provider Family Medicine
DX: Z13.6 Encounter for screening for cardiovascular disorders (principal)
CPT/HCPCS: 76706

== ENCOUNTER → 2021-01-16 07:19 | Outpatient (CLI) | payer MEDICARE, OTHER, SELFPAY ==
[2021-01-16 08:16] LABS: Cholesterol 121 mg/dL (140-199); HDL Cholesterol 50 mg/dL (40-60); Hemoglobin 14.1 g/dL (13.5-17.5); LDL Cholesterol Calculated 51 mg/dL (<100); Triglycerides 101 mg/dL (35-150)
[2021-01-16 08:45] LABS: Prostate Specific Antigen 0.358 ng/mL (0.10-4.00)
[2021-01-20 14:09] LABS: Percent Free Testosterone 2.72 % (1.50-4.20); Testosterone Free 4.93 ng/dL (5.00-21.00); Testosterone Total 181.4 ng/dL (264.0-916.0)
== END ==
PROVIDERS: PCP Family Medicine; Referring Provider Urology; Visit Provider Urology
DX: E29.1 Testicular hypofunction (principal); Z12.5 Encounter for screening for malignant neoplasm of prostate
CPT/HCPCS: 36415; 80061; 84153; 84402; 84403; 85014; 85018; G0103

== ENCOUNTER → 2021-12-25 09:57 | Outpatient (CLI) | payer MEDICARE, OTHER, SELFPAY ==
[2021-12-25 10:54] LABS: Cholesterol 134 mg/dL (140-199); HDL Cholesterol 53 mg/dL (40-60); LDL Cholesterol Calculated 56 mg/dL (<100); Triglycerides 123 mg/dL (35-150)
[2021-12-25 11:26] LABS: Prostate Specific Antigen 0.435 ng/mL (0.10-4.00)
[2022-01-02 07:23] LABS: Percent Free Testosterone 3.28 % (1.50-4.20); Testosterone Free 44.21 ng/dL (5.00-21.00)
== END ==
PROVIDERS: PCP Family Medicine; Referring Provider Urology; Visit Provider Urology
DX: E78.5 Hyperlipidemia, unspecified (principal); E29.1 Testicular hypofunction
CPT/HCPCS: 80061; 84153; 84402; 84403

== ENCOUNTER → 2022-07-23 10:01 | Outpatient (CLI) | payer MEDICARE, OTHER, SELFPAY ==
[2022-07-23 10:29] LABS: Hematocrit 45.2 % (41-53); Hemoglobin 14.5 g/dL (13.5-17.5)
[2022-07-23 12:27] LABS: Cholesterol 136 mg/dL (140-199); HDL Cholesterol 60 mg/dL (40-60); LDL Cholesterol Calculated 50 mg/dL (<100); Triglycerides 132 mg/dL (35-150)
[2022-07-23 13:03] LABS: Testosterone 129 ng/dL (71.8-623)
== END ==
PROVIDERS: PCP Family Medicine; Referring Provider Urology; Visit Provider Internal Medicine Hematology & Oncology
DX: E29.1 Testicular hypofunction (principal); D75.1 Secondary polycythemia
CPT/HCPCS: 36415; 80061; 84403; 85014; 85018

== ENCOUNTER → 2023-01-22 10:35 | Outpatient (CLI) | payer MEDICARE, OTHER, SELFPAY ==
[2023-01-22 12:27] LABS: Hematocrit 44.6 % (41-53); Hemoglobin 14.3 g/dL (13.5-17.5)
[2023-01-22 12:56] LABS: Alanine Aminotransferase 37 IU/L (<50); Albumin 3.9 g/dL (3.5-5.0); Albumin Globulin Ratio 1.3 (1.0-2.8); Alkaline Phosphatase 66 U/L (38-126); Aspartate Aminotransferase 37 IU/L (17-59); BUN Creatinine Ratio 23.3 (6-22); Bilirubin Total 0.9 mg/dL (0.2-1.3); Blood Urea Nitrogen 21 mg/dL (9-20); Calcium 8.8 mg/dL (8.4-10.2); Carbon Dioxide 34 mmol/L (22-32); Chloride 100 mmol/L (98-107); Estimated Glomerular Filt Rate > 60 mL/min (>60); Globulin 2.9 g/dL (1.7-4.1); Glucose 118 mg/dL (80-110); HEMOLYSIS < 15 (0-50); Potassium 4.4 mmol/L (3.4-5.1); Sodium 138 mmol/L (137-145); Total Protein 6.8 g/dL (6.3-8.2)
[2023-01-22 13:26] LABS: Prostate Specific Antigen 0.368 ng/mL (0.10-4.00)
[2023-02-04 15:53] LABS: Percent Free Testosterone 0.94 % (1.50-4.20); Testosterone Free 3.84 ng/dL (5.00-21.00)
== END ==
PROVIDERS: PCP Family Medicine; Referring Provider Urology; Visit Provider Urology
DX: E29.1 Testicular hypofunction (principal); Z12.5 Encounter for screening for malignant neoplasm of prostate; E78.5 Hyperlipidemia, unspecified
CPT/HCPCS: 36415; 80053; 84153; 84402; 84403; 85014; 85018; G0103

== ENCOUNTER → 2023-07-29 09:52 | Outpatient (CLI) | payer MEDICARE, OTHER, SELFPAY ==
[2023-07-29 10:26] LABS: Hematocrit 47.7 % (41-53); Hemoglobin 15.8 g/dL (13.5-17.5)
[2023-07-29 10:31] LABS: Alanine Aminotransferase 44 IU/L (<50); Albumin 4.3 g/dL (3.5-5.0); Albumin Globulin Ratio 1.4 (1.0-2.8); Alkaline Phosphatase 68 U/L (38-126); Aspartate Aminotransferase 41 IU/L (17-59); BUN Creatinine Ratio 22.7 (6-22); Bilirubin Total 0.8 mg/dL (0.2-1.3); Blood Urea Nitrogen 20 mg/dL (9-20); Calcium 9.5 mg/dL (8.4-10.2); Carbon Dioxide 31 mmol/L (22-32); Chloride 99 mmol/L (98-107); Estimated Glomerular Filt Rate > 60 mL/min (>60); Glucose 94 mg/dL (80-110); HEMOLYSIS < 15 (0-50); Potassium 4.7 mmol/L (3.4-5.1); Sodium 136 mmol/L (137-145); Total Protein 7.3 g/dL (6.3-8.2)
[2023-07-29 10:33] LABS: Cholesterol 135 mg/dL (140-199); HDL Cholesterol 45 mg/dL (40-60); LDL Cholesterol Calculated 47 mg/dL (<100); Triglycerides 215 mg/dL (35-150)
[2023-07-29 10:43] LABS: HEMOLYSIS < 15 (0-50); Iron 68 ug/dL (49-181)
[2023-07-29 10:55] LABS: Percent Iron Saturation 16 % (20-50); Total Iron Binding Capacity 416 ug/dL (261-462); Transferrin 302 mg/dL (206-381)
[2023-07-29 11:06] LABS: Ferritin 12 ng/mL (18-464)
[2023-08-04 12:57] LABS: Percent Free Testosterone 2.16 % (1.50-4.20); Testosterone Free 7.44 ng/dL (5.00-21.00); Testosterone Total 344.5 ng/dL (264.0-916.0)
== END ==
PROVIDERS: Internal Medicine Hematology & Oncology; PCP Family Medicine; Referring Provider Urology; Visit Provider Urology
DX: E29.1 Testicular hypofunction (principal); E78.5 Hyperlipidemia, unspecified; D75.1 Secondary polycythemia
CPT/HCPCS: 36415; 80053; 80061; 82728; 83540; 83550; 84402; 84403; 85014; 85018

== ENCOUNTER → 2023-12-14 12:30 | Outpatient (CLI) | payer MEDICARE, OTHER, SELFPAY ==
--- NOTE | 2023-12-14 12:33 | DI.ECHO.S_ITS ---
[place] +---------+ [facility] +---------+ : : [address] [place] : : : : [id number] : : : : Phone: [phone]+ Echocardiogram Report + + :Name: NICKO SHAH Study Date: 12/14/2023 Height: 68 in : :[facility] ReadingLocation: Weight: 230 lb : : Gender: Male BSA: 2.2 m2 : :: 1950 Age: 73 yrs BP: 145/78 mmHg: :Reason For Study: SUPRAVENTRICULAR TACHYCARDIA : :Ordering Physician: EDWIGE, : :MISAEL Obrien Performed By: Asad Zendejas : :Referring: MISAEL GIBBONS : + + Interpretation Summary Normal left ventricle size with ejection fraction 60-65%. No significant valvular abnormality. Procedure: A two-dimensional transthoracic echocardiogram with color flow and Doppler was performed. The study quality was technically adequate. There is no prior echocardiogram noted for this patient. The patient was in normal sinus rhythm during the exam. The heart rate ranged between 55-66 bpm during the study. Left Ventricle: The left ventricle is normal in size and wall thickness. The ejection fraction is estimated to be 60-65%. There are no obvious focal wall motion abnormalities noted but poor endocardial definition reduces the sensitivity for the detection of such. Right Ventricle: The right ventricle is normal in size and function. Atria: The left atrial size is normal. Right atrial size is normal. Mitral Valve: The mitral valve leaflets appear mildly thickened, but open well. There is no mitral valve stenosis. There is mild mitral regurgitation. Aortic Valve: The aortic valve is trileaflet. There is mild aortic valve sclerosis. There is no aortic valve stenosis. No aortic regurgitation is present. Tricuspid Valve: The tricuspid valve is normal in structure and function. There is no tricuspid stenosis. No tricuspid regurgitation. Pulmonic Valve: The pulmonic valve is not well visualized. There is no pulmonic valvular stenosis. There is a trace or physiologic amount of pulmonic regurgitation. Great Vessels: The aortic root is normal size. The ascending aorta could not be visualized. The IVC is of normal diameter and collapses greater than 50% with a sniff. This suggests a low right atrial pressure of 3 mm Hg. Pericardium/ Pleura There is no pericardial effusion. There is no pleural effusion. MMode/2D Measurements & Calculations LVIDd: 4.8 cm LVOT diam: 2.3 cm LVIDs: 3.2 cm Ao root diam: 3.4 cm FS: 33.9 % IVSd: 0.88 cm LVPWd: 0.99 cm LV rico. diameter/BSA (cm/m^2): 2.2 LV sys. diameter/BSA (cm/m^2): 1.5 LA A4 area: 18.2 cm2 RA long axis: 4.5 cm LA length (vol): 4.7 cm RA area: 16.8 cm2 RA vol: 53.2 ml RA : 24.5 ml/m2 IVC diam: 1.7 cm RVD1 (basal): 3.9 cm LA A2C-A/L_phl: 19.5 cm2 RVD2 (mid): 3.8 cm TAPSE: 3.4 cm Doppler Measurements & Calculations Ao V2 max: 144.8 cm/sec LVOT Max Juan: 116.6 cm/sec Ao V2 mean: 94.6 cm/sec LV V1 max P.4 mmHg Ao max P.4 mmHg LV V1 VTI: 25.9 cm Ao mean P.3 mmHg DONNA(I,D): 3.5 cm2 Ao V2 VTI: 31.7 cm DONNA(V,D): 3.4 cm2 sev ratio: 0.82 DONNA indexed to BSA (cm^2/m^2): 1.6 MV E max juan: 76.7 cm/sec PA pr(Accel): 51.6 mmHg MV A max juan: 88.4 cm/sec MV E/A: 0.87 Med Peak E' Juan: 7.8 cm/sec E/E' med: 9.8 Lat Peak E' Juan: 11.0 cm/sec E/E' lat: 7.0 E/e' average: 8.4 MV dec time: 0.18 sec SV(LVOT): 109.6 ml Electronically signed by: Chilo Cook on Reading Physician:12/14/2023 05:14 PM
== END ==
LOC: ECHO 12:32
PROVIDERS: PCP Family Medicine; Referring Provider Family Medicine; Visit Provider Family Medicine
DX: I08.0 Rheumatic disorders of both mitral and aortic valves (principal); I47.10 Supraventricular tachycardia, unspecified
CPT/HCPCS: 93306

== ENCOUNTER 2024-05-07 12:57 | Emergency (ER) | payer MEDICARE, OTHER, SELFPAY ==
[2024-05-07 12:58] VITALS: BP 185/88; PULSE 72; RESP 16; TEMP 36.8; O2SAT 95; BMI 35.6
--- NOTE | 2024-05-07 13:41 | ED.GENADULT ---
HPI - General Adult General Chief complaint: Eye Problems Stated complaint: R Eye Pain, Seeing lights Time Seen by Provider: 05/07/24 13:31 Source: patient and family Mode of arrival: Ambulatory History of Present Illness HPI narrative: Patient is a 73-year-old male. Has a history of macular degeneration. One week ago he would injections in both of his eyes. He has had that injection in his left eye in the past but this was the 1st time for his right eye. This was done by his retina specialist. He states that the procedure went well. Yesterday he started to have inflammation in his right eye. He states that it feels like there was pressure in the high. He denies any changes in his vision. No changes with movement of the eye. No blurry vision. No double vision. No headache. No sore throat. No sinus congestion. No changes in the skin around the eye. He states that he was having the pressure in the eye and also photophobia. No left eye changes Related Data Home Medications Medication Instructions Recorded Confirmed VITAMIN D (Vitamin D3) 1,000 iu PO QDAY ##0 01/30/17 02/09/23 [MILK THISTLE] 500 mg PO QDAY ##0 01/30/17 02/09/23 ascorbic acid (vitamin C) 500 mg 500 mg PO QDAY ##0 01/30/17 02/09/23 tablet glucosamine sulfate 500 mg capsule 500 mg PO QDAY ##0 01/30/17 02/09/23 (Synovacin) hydrochlorothiazide 25 mg tablet 25 mg PO QDAY ##0 01/30/17 02/09/23 loratadine 10 mg capsule (Claritin 10 mg PO QDAYP PRN Allergy 01/30/17 02/09/23 Liqui-Gel) Symptoms ##0 omega 6-tap-dww-fish oil 1,000 mg 1,000 mg PO QDAY ##0 01/30/17 02/09/23 (120 mg-180 mg) capsule (Fish Oil) trazodone 50 mg tablet 50 mg PO HS ##0 01/30/17 02/09/23 zinc gluconate 100 mg tablet 100 mg PO QDAY ##0 01/30/17 02/09/23 aspirin 81 mg tablet,delayed 81 mg PO DAILY ##0 01/11/18 02/09/23 release ginkgo biloba leaf extract 60 mg 60 mg PO Q DAY ##0 01/11/18 02/09/23 tablet metoprolol tartrate 50 mg tablet 50 mg PO BID 04/08/18 02/09/23 esomeprazole magnesium 20 mg 20 mg PO DAILY 12/02/18 02/09/23 capsule,delayed release (Nexium 24HR) atorvastatin 20 mg tablet 20 mg PO DAILY 02/09/23 02/09/23 magnesium 500 mg tablet 500 mg PO DAILY 02/09/23 02/09/23 Previous Rx's Medication Instructions Recorded tobramycin-dexamethasone 0.3 %-0.1 0.5 inch EYE-RIGHT QID #3.5 grams 05/07/24 % eye ointment (TobraDex) Allergies Allergy/AdvReac Type Severity Reaction Status Date / Time sulfamethoxazole Allergy Verified 05/07/24 13:07 [From Bactrim] trimethoprim [From Bactrim] Allergy Verified 05/07/24 13:07 morphine [MORPHINE] AdvReac Severe ITCH Verified 07/05/18 14:58 Review of Systems Constitutional Constitutional: Reports system reviewed and no additional complaints, except as documented Eyes Eyes: Reports system reviewed and no additional complaints, except as documented ENT Ears, Nose, Mouth, and Throat: Reports system reviewed and no additional complaints, except as documented Integumentary/Breasts Skin/Breast: Reports system reviewed and no additional complaints, except as documented Patient History Social History Smoking Status: Former smoker Smoking Status: Former smoker Substance Use Type: does not use Exam Initial Vital Signs Initial Vital Signs: Vital Signs Temperature 98.2 F 05/07/24 12:58 Pulse Rate 72 05/07/24 12:58 Respiratory Rate 16 05/07/24 12:58 Blood Pressure 185/88 H 05/07/24 12:58 Pulse Oximetry 95 05/07/24 12:58 Oxygen Delivery Method Room Air 05/07/24 12:58 Eyes Visual [place]: normal visual olmstead by confrontation Alignment and Position: alignment normal Periorbital: periorbital findings normal Eyelids: eyelids normal Conjunctivae: conjunctival abnormality right conjunctival chemosis and conjunctival injection diffuse; without discharge Sclera: scleral abnormality right scleral injection; without foreign bodies and without hemorrhages Cornea: corneas normal (No clouding of the cornea) and fluorescein used Pupils: PERRL EOM: EOM intact bilaterally Direct ophthalmoscopy: normal light reflex and photophobia Other: Intra-ocular pressure right eye is 18 come in her ocular pressure left eye is 20 Skin General: no rashes or lesions noted Neuro General: patient alert, patient awake, patient oriented x3 and moves all extremities Course Orders Ordered: Discontinued Medications Fluorescein Sodium (Fluorescein 1 Mg Strip) 1 mg EYE-BOTH NOW ONE Stop: 05/07/24 13:38 Last Admin: 05/07/24 13:44 Dose: 1 mg Documented By: MYKE Proparacaine HCl (Proparacaine 0.5% Ophth Erin) 1 drops EYE-LEFT NOW ONE Stop: 05/07/24 13:32 Last Admin: 05/07/24 13:43 Dose: 1 drops Documented By: MYKE Vital Signs Vital signs: Vital Signs - 8 hr 05/07/24 12:58 05/07/24 14:18 Temperature 98.2 F Pulse Rate 72 63 Respiratory Rate 16 18 Blood Pressure 185/88 H 140/67 Pulse Oximetry 95 96 Oxygen Delivery Method Room Air Room Air Medical Decision Making MDM Narrative Medical decision making narrative: Patient does have localized right eye symptoms. I did discuss the case with on-call Ophthalmology at [facility] who was on-call for the patient's retina specialist. They stated that this is most likely a conjunctivitis. Recommended TobraDex to be used 4 times a day. This was ordered and sent to the pharmacy of his choice. There was no foreign body noted. Low suspicion for glaucoma. 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 They were given return precautions. They expressed understanding and agreement. Discharge Plan Departure Patient Disposition: Home Clinical Impression: Conjunctivitis Instructions: Conjunctivitis Activity Restrictions/Additional Instructions: The wire rope fabrication supervisor that I spoke to would like you to start on the antibiotic ointment. This was sent to [facility]. Use it as directed. Follow all of the post-injection instructions given to you by the retina specialist. Contact their office on Thursday for follow-up. Return to the emergency department for new symptoms. Prescriptions: New TobraDex 0.3-0.1 % ointment 0.5 inch EYE-RIGHT QID Qty: 3.5 2RF No Action hydrochlorothiazide 25 MG tablet 25 mg PO QDAY Qty: 0 trazodone 50 MG tablet 50 mg PO HS Qty: 0 Claritin Liqui-Gel 10 MG capsule 10 mg PO QDAYP PRN (Reason: Allergy Symptoms) Qty: 0 VITAMIN D (Vitamin D3) 1,000 iu PO QDAY Qty: 0 ascorbic acid (vitamin C) 500 MG tablet 500 mg PO QDAY Qty: 0 omega 4-tva-stm-fish oil [Fish Oil] 1,000 MG capsule 1,000 mg PO QDAY Qty: 0 [MILK THISTLE] 500 mg PO QDAY Qty: 0 zinc gluconate 100 MG tablet 100 mg PO QDAY Qty: 0 glucosamine sulfate [Synovacin] 500 MG capsule 500 mg PO QDAY Qty: 0 aspirin 81 MG tablet,delayed release (DR/EC) 81 mg PO DAILY Qty: 0 ginkgo biloba leaf extract 60 MG tablet 60 mg PO Q DAY Qty: 0 metoprolol tartrate 50 mg Tablet 50 mg PO BID esomeprazole magnesium [Nexium 24HR] 20 mg Capsule,Delayed Release(Dr/Ec) 20 mg PO DAILY magnesium 500 mg Tablet 500 mg PO DAILY atorvastatin 20 mg Tablet 20 mg PO DAILY Referrals: Rubens Avalos MD [Primary Care Provider] - Stand Alone Forms: Patient Portal/API
[2024-05-07] MEDS: PROPARACAINE 0.5% OPHTH SOL 1 DROPS EYE-LEFT (13:43)
[2024-05-07] MEDS: FLUORESCEIN 1 MG STRIP EYE-BOTH (13:44)
[2024-05-07 14:18] VITALS: BP 140/67; PULSE 63; RESP 18; O2SAT 96
== END 2024-05-07 14:20 | disposition home or self-care (01) ==
PROVIDERS: Emergency Provider Emergency Medicine; PCP Family Medicine
DX: H10.9 Unspecified conjunctivitis (principal)
CPT/HCPCS: 99282; 99283